=== PATIENT | male | born 1955 | race Caucasian/White ===

== ENCOUNTER → 2024-04-14 | Outpatient (CLI) | payer BC ==
--- NOTE | 2024-04-14 15:34 | CA ---
Exercise Nuclear Stress Test Report Name: Lucio Eagle Exam Date: 04/14/2024 09:29 Exam Location: [place] Stress Ht (in): 69 Wt (lb): 200 BSA: 2.07 Ordering Phys: Mounika Alvarez MD Referring Phys: MOUNIKA ALVAREZ Technologist: ROSENDA Age: 68 Gender: M : 1955 Procedure CPT: Indications: I25.10 CAD ICD-10 Codes: Patient History: Hyperlipidemia and CAD Medications: SIMVASTATIN,,,, LOSARTAN,,,, TANSULOSIN,,, Meds past 24 hrs: Pretest Chest Pain: STRESS TEST Dontae Protocol Exercise Duration (min:sec): 10:[address] Depressions (mm): Angina Score: Jordan Score: Resting HR (bpm): 67 Peak HR (bpm): 158 Resting BP (mmHg): 178 / 93 Peak BP (mmHg): 235 / 95 MPHR: 153 Target HR: 130 % MPHR: 103 METS: 12.1 Total Dose: Peak Dose: Atropine: Double Product: 91821 BP Response: Stress Termination: Reached target heart rate Stress Symptoms: No chest pain or symptoms Stress Summary: ECG ANALYSIS Resting ECG: Stress ECG: CONCLUSIONS Diagnosis: Hypertension dyslipidemia and CAD Exercise stress test Exercise duration 10 minutes 30 seconds, baseline heart rate 67 beats a minute, baseline blood pressure 158 beats a minute Hypertensive response to exercise Peak blood pressure 235/95 mmHg No ECG evidence of ischemia or arrhythmia Dr. David Luz MD (Electronically Signed) Final Date: 14 April 2024 15:33
== END | disposition home or self-care (01) ==
LOC: RADNMMAIN 07:55
PROVIDERS: ATTEND Internal Medicine
DX: I25.10 Atherosclerotic heart disease of native coronary artery without angina pectoris (principal); I10 Essential (primary) hypertension
CPT/HCPCS: 93017; 78452; A9500

== ENCOUNTER → 2025-04-05 | Outpatient (CLI) | payer MEDICAID ==
[2025-04-05 15:39] LABS: Basophils # (A) 0.05 X 10*3/uL (0.00-0.10); Basophils % (A) 0.6 %; Eosinophils # (A) 0.89 X 10*3/uL (0.04-0.35); Eosinophils % (A) 11.0 %; HCT 41.5 % (39.6-50.0); HGB 13.7 g/dL (13.0-17.0); Immature Grans, Automated 0.40 %; Lymphocytes # (A) 1.65 X 10*3/uL (0.90-5.00); Lymphocytes % (A) 20.5 %; MCH 30.2 pg (27.0-32.0); MCHC 33.0 g/dL (32.0-37.0); MCV 91.4 FL (80.0-97.0); Monocytes # (A) 0.73 X 10*3/uL (0.20-1.00); Monocytes % (A) 9.1 %; NRBC Per 100 WBC 0 X 10*3/uL (0.00-0.01); Neutrophils # (A) 4.71 X 10*3/uL (1.80-7.70); Neutrophils % (A) 58.4 %; Platelet Count 255 X 10*3/uL (140-440); RBC 4.54 X 10*6/uL (4.40-5.60); RDW 13.3 % (11.5-14.5); WBC 8.06 X 10*3/uL (4.50-10.00)
[2025-04-05 15:47] LABS: Bilirubin,Urine Negative (Negative); Blood,Urine Negative (Negative); Color,Urine Yellow (Yellow); Ketones,Urine Negative (Negative); Nitrite,Urine Negative (Negative); PH, Urine 5.5; Specific Gravity,Urine 1.014 (1.001-1.030); Urobilinogen,Urine 0.2 E.U./DL
[2025-04-05 16:20] LABS: Cholesterol 138.00 mg/dL (0.00-200.00); HDL Cholesterol 71.80 mg/dL (40.00-60.00); Triglycerides 53.00 mg/dL (0.00-149.00); VLDL Calculation 10.60 mg/dL (5.00-40.00)
[2025-04-05 16:21] LABS: ALT 42 U/L (10-49); AST 25 U/L (14-35); Albumin 4.2 g/dL (3.8-4.9); Albumin/Globulin Ratio 2.21 Ratio (1.60-3.17); Alkaline Phosphatase 76 U/L (41-126); Anion Gap 13.60 mmol/L (4.00-12.00); BUN/Creat Ratio 19.70 Ratio (12.00-20.00); Blood Urea Nitrogen 19.7 mg/dL (9.0-27.0); Calcium 9.0 mg/dL (8.7-10.3); Carbon Dioxide 24.4 mmol/L (21.6-31.8); Chloride 101 mmol/L (96-109); Globulin 1.9 g/dL (1.6-3.3); Glucose 93 mg/dL (70-110); LDL Cholesterol,Calculated 55.6 mg/dL (0.0-131.0); Magnesium 1.9 mg/dL (1.5-2.4); Potassium 4.5 mmol/L (3.5-5.5); Sodium 139 mmol/L (135-145); Total Protein 6.1 g/dL (6.2-8.2)
== END | disposition home or self-care (01) ==
LOC: LABWHC1 11:43
PROVIDERS: ATTEND Internal Medicine
DX: Z00.00 Encounter for general adult medical examination without abnormal findings (principal); Z13.29 Encounter for screening for other suspected endocrine disorder; I10 Essential (primary) hypertension; R35.0 Frequency of micturition; R73.03 Prediabetes
CPT/HCPCS: 36415; 80053; 80061; 81003; 83036; 83735; 84443; 85025